=== PATIENT | female | born 1955 | race Caucasian/White ===

== ENCOUNTER → 2019-09-16 09:20 | Outpatient (CLI) | payer MEDICARE, SELFPAY ==
--- NOTE | 2019-09-16 | BRBX_PTH ---
PATIENT: HOA BLOOM LOC: [facility] U#:[id number] AGE/SX: 70/F ROOM: RE09/16/[address]: Dr. John Cody MD : 1955 BED: DIS: SPEC #: [id number] RECD: 09/16/19 13:33 STATUS: TAMMY REMary #: [id number] KEISHA: 09/16/19 00:[address]: John Cody DEPT: SURGICAL PATHOLOGY RECD BY: Asael Gómez ENTERED: 09/16/19 13:34 SP TYPE: BREAST BX OTHR DR: Dr. Herve Roe MD Tissues: Left breast, NOS Procedures: Surgery Specimen Level IV HEADER OPERATION: Left breast stereotactic needle core biopsy PRE-OP DIAGNOSIS: Microcalcifications TISSUE SUBMITTED: Left breast ISCHEMIC TIME: 2 minutes FIXATION TIME: 56.5 hours MICROSCOPIC DIAGNOSIS Left breast, stereotactic needle core biopsy: Fragments of benign breast tissue with focal fibrocystic changes and intraductal hyperplasia without atypia. Microcalcifications are not identified. Negative for malignancy. See comment. BOY:dwain 09/19/19 COMMENT Multiple levels are examined. Correlation with clinical, radiologic findings and appropriate follow up are necessary. MICROSCOPIC DESCRIPTION Slides are reviewed. GROSS DESCRIPTION Received is one container labeled with the patient's name and not further designated. The specimen consists of multiple elongated fragments of wyman-yellow fibroadipose tissue that in aggregate measure 7.5 x 3 x 0.3 cm. The entire specimen is submitted in three cassettes. / BOY:dwain 09/16/19 TC:5 CPT: 03051
--- NOTE | 2019-09-16 07:58 | PCM.HP.BLA ---
History and Physical Date of Admission: 09/16/19 HISTORY AND PHYSICAL - BREAST COMPLAINT ? Charito Cruz 1955 ? ? REFERRING PHYSICIAN: ??Tristen Schumacher MD ? CHIEF COMPLAINT:???Abnormal left breast imaging ? HPI: The patient is a 64 year old female with a complaint of?an abnormal mammogram. ?The patient had a?screening mammography on July 12, 2019 with follow-up diagnostic?mammogram with ultrasound on August 09, 2019?which demonstrated: ? IMPRESSION: SUSPICIOUS FINDING - BIOPSY SHOULD BE CONSIDERED The 5 mm irregular equal density focal asymmetry in the left breast is suspicious of malignancy. ?A stereotactic biopsy is recommended. ? Stereotactic biopsy is suggested since this is not well seen sonographically and the calcifications can serve as a marker for easeier idetification. LIMITED ULTRASOUND OF LEFT BREAST: 08/09/2019 RESULT: Comparison is made to exam dated: ?07/12/2019 mammogram - [facility]. ?Color flow and real-time ultrasound of the left breast 10-11 o'clock region were performed. ?Degroot scale images of the real-time examination were reviewed. There is 0.5 cm x 0.5 cm x 0.3 cm lobulated mass in the left breast at 11 o'clock middle depth 4 cm from the nipple. ?This lobulated mass is hypoechoic. IMPRESSION: SUSPICIOUS FINDING - BIOPSY SHOULD BE CONSIDERED The 0.5 cm x 0.5 cm x 0.3 cm lobulated mass in the left breast is suspicious of malignancy. ?A stereotactic biopsy is recommended. Sajan garcia/joleen:08/09/2019 15:45:49 Hose Seamer(s): RT Gene(R)(M), [facility]; Carolann Moraes, [facility] ?OVERALL STUDY BIRADS: 4 Suspicious finding - Biopsy should be considered Brass Pourer: Joleen Transcribe Date/Time: Aug 09 2019 ?2:52P Dictated by: SAJAN GAONA MD This examination was interpreted and the report reviewed and electronically signed by: SAJAN GAONA MD on Aug 09 2019 ?3:45PM ?EST Results-Findings ? * * *Final Report* * * DATE OF EXAM: Aug 09 2019 ?3:06PM ? WRW ??0621 ?- ?[facility] ?/ PROCEDURE REASON: Abnormal mammogram ? * * * * Physician Interpretation * * * * RESULT: #[id number] - [facility] #[id number] - [facility] US BREAST LTD LT UNILATERAL LEFT DIGITAL DIAGNOSTIC MAMMOGRAM WITH CAD: 08/09/2019 HISTORY: Abnormal Mammogram/call back left /priors available for comparison Abnormal Mammogram. RESULT: TECHNIQUE: The study was acquired using full field digital technology and interpreted from soft copy. Current study was also evaluated with a Computer Aided Detection (CAD). Comparison is made to exam dated: ?07/12/2019 mammogram - [facility]. ?There are scattered fibroglandular elements in left breast. There is a 5 mm irregular equal density focal asymmetry with a macrolobulated margin and fine calcifications in the left breast at 11 o'clock middle depth. No other significant masses or calcifications are seen in the breast. ? ? ? The patient?has a history of a previous right sided needle biopsy with marker clip placement and a previous open left breast biopsy performed in the ?with no marker placements. ?These both returned as benign. ?She does??perform a self breast exam routinely. ?She notes no skin changes. ?She denies nipple discharge. ?She notes no axillary masses. ?The patient has a sister diagnosed with breast cancer.??She notes no significant breast trauma or breast difficulties in the past. ? The patient has had?2?pregnancies. ??Her last mammogram was 2016. ?Her last menstrual period was in the 1989's. ?Her first menstrual period was at age 13. ? The patient is being seen by me today at the request of?Td?my opinion and advice regarding abnormal left breast imaging.?? ? PAST MEDICAL HISTORY PAST MEDICAL HISTORY Diagnosis Date ? Cholelithiasis 09/07/2014 ? Since 2011. ?Saw surgeon and was to have removed but surgery never set up and has not had any further symptoms. ? Elevated fasting blood sugar 07/26/2017 ? Essential hypertension 09/07/2014 ? Fatty liver 10/09/2014 ? Mixed hyperlipidemia 09/07/2014 ? Palpitations ? ? Vitamin D deficiency 07/02/2017 ? PAST SURGICAL HISTORY PAST SURGICAL HISTORY Procedure Laterality Date ? BREAST BIOPSY ? 07/1975 ? left breast - benign ? BREAST BIOPSY ? 11/2011 ? right breast - benign ? DELIVERY ONLY ? ? ? x2 ? PAST SURGICAL HISTORY OF ? 12/11/2014 ? parathyroidectomy, left upper ? ? ? CURRENT MEDICATIONS Current Outpatient Medications Medication Sig Dispense Refill ? Cholecalciferol, Vitamin D3, (VITAMIN D) 1,000 unit cap Take 1,000 Units by mouth once daily. ? ? ? atorvastatin (LIPITOR) 40 mg tablet Take 1 tablet by mouth once daily. 90 tablet 3 ? Hydrochlorothiazide 12.5 mg capsule Take 1 capsule by mouth once daily. 90 capsule 3 ? TURMERIC ORAL Take 1,000 mg by mouth once daily. ? ? ? OMEGA3/DHA/EPA/FISH OIL/VIT D3 (KY-2-WWU-EPA-FISH OIL-VIT D3 ORAL) Take ?by mouth. ? ? ? famotidine (PEPCID) 20 mg tablet Take 20 mg by mouth twice daily. ? ? ? CALCIUM-VITAMIN D3 ORAL Take 2,000 Units by mouth once daily. ? ? ? calcium carbonate (TUMS) 500 mg chew Take 1 tablet by mouth every hour as needed (mouth or hand numbness or tingling). ? 0 ? Glucosamine Sulfate 1,000 mg cap Take 2 per day ? ? ? pyridoxine (VITAMIN B-6) 100 mg tablet Take 1 tablet by mouth once daily. ? 0 ? [place]'s Wort 300 mg tab Take 2-3 tablets per day ? ? ? MULTI-VITAMIN ORAL Take 1 tablet by mouth once daily. ? ? ? deer-yfmo-bqt-ebc-fwi-vfvq-hor (TUMERSAID) [phone] mg tab Take by mouth. ? ? ? naproxen sodium (ALEVE) 220 mg tablet Take 220 mg by mouth three times daily with meals. ? ? ? red yeast rice 600 mg tab Take ?by mouth once daily. ? ? ? No current facility-administered medications for this visit.? ? ? ALLERGIES:?Patient has no known allergies. ? PERSONAL HISTORY:? SOCIAL HISTORY Social History ? Tobacco Use ? Smoking status: Never Smoker ? Smokeless tobacco: Never Used Substance Use Topics ? Alcohol use: No ? Drug use: No ?? ? FAMILY HISTORY:? FAMILY HISTORY FAMILY HISTORY Problem Relation Age of Onset ? Cancer Father ?unknown type ? Breast Cancer Sister ? ? ? REVIEW OF SYMPTOMS: ??The review of systems data was entered by the nurse and reviewed by me ? There are no exam notes on file for this visit. ? ? PHYSICAL EXAMINATION: ? General: ?The patient is 64 year old female, well nourished, well hydrated in no acute distress. ?The patient is oriented to time, place, and person. ? VITALS:?Blood pressure 142/86, pulse 95, temperature 36.5 ?C (97.7 ?F), height 162.6 cm (5' 4), weight 90.4 kg (199 lb 6.4 oz), SpO2 100 %.?Body mass index is 34.23 kg/m?.? ? HEENT: ?Normal cephalic, ataumatic, pupils are equally round, sclera are anicteric, mucous membranes are moist, oropharynx is clear. ?Neck has no masses, asymmetry or lymphadenopathy. ?Thyroid is unremarkable. ? Respiratory: ?Clear to auscultation and percussion. ?Normal respiratory excursion and pattern. ? Cardiac: ?Examination is regular rate and rhythm. ? Abdominal exam: ?Soft, nontender, ?with no palpable masses. ?No hepatosplenomegaly. ?No palpable hernias. ? Rectal exam: ?exam deferred Extremities: ?no clubbing, cyanosis or edema. ?No adenopathy. ? Breast: ?Visual inspection reveals no retractions, nipple inversion, or skin changes. ?Palpation of the right breast reveals no dominant or suspicious masses, but multiple benign-feeling nodules. ?Palpation of the left breast reveals no dominant or suspicious masses, but multiple benign-feeling nodules. ?Axillary exam demonstrates no suspicious masses in either the left or right axilla. ?There is no nipple discharge expressed from either the left or right breast. ? LABORATORY VALUES: As Noted ? RADIOLOGIC STUDIES: ?As Noted ? Assessment ? IMPRESSION:?Microcalcifications left breast ? PLAN:??I plan to perform a?stereotactic biopsy of the left breast. ?The planned surgical procedure was discussed extensively with the patient. ?The risks, benefits, anticipated outcomes and possible complications were mentioned. ?My staff has also explained the procedure in understandable terms and the patient was given the option to take printed material concerning the planned procedure. ?The patient had the opportunity to ask questions concerning the planned procedure. ?The patient freely consents to the planned procedure. ? Diagnoses:?(R92.8) Abnormal finding on breast imaging ?(primary encounter diagnosis) ? My findings have been communicated to Dr.??Tristen Schumacher MD?via shared medical record. ?This note will be forwarded to Dr. Tristen Schumacher MD. ? Return to Clinic: The patient is instructed to follow-up with me?after the testing has been completed. ? John Cody MD
--- NOTE | 2019-09-16 17:59 | PCM.OPRPT ---
Report of Operation Date of Procedure: 09/16/19 Pre-Operative Diagnosis: left breast microcalcifications/mass Post-Operative Diagnosis: successful state that he biopsy of left breast microcalcifications/mass Surgery/Procedure Performed:: left breast VAC assisted core needle biopsy/stereotactic biopsy with specimen radiograph and marker placement commercial green building architect: None Type of Anesthesia:: Local Specimen's removed: left breast tissue Description of Procedure: The patient was brought to the stereotactic suite and informed of the plan course of events. The left breast was positioned in the CC approach on the Tian stereotactic table. Mammographic image demonstrated the area of abnormality to be located in the center of the radiograph. Stereotactic images were then obtained which demonstrated good positioning of the abnormality for biopsy with good stroke norah parameters. The breast was cleaned with Betadine area did one percent lidocaine was used to anesthetize the skin and a small stab incision made. An 8-gauge mammotome needle was placed into the pre-fire position. Stereotactic images demonstrated good positioning around the planned biopsy site. Local anesthetic injected deeply in the breast. The needle was deployed. Post deployment images demonstrated good positioning of the planned biopsy site. Multiple vacuum-assisted samples were obtained and uaqxur-lrr-mpeqh fashion. Specimen radiograph demonstrated micro-calcifications in the sample. A gel marker clip was deployed. Post biopsy images demonstrated good position of the clip relative the biopsy cavity. The breast was removed from compression. Steri-Strips and a dressing applied. Post procedure mammogram images were obtained.
== END ==
PROVIDERS: Referring Provider Surgery; Visit Provider Surgery
DX: N62 Hypertrophy of breast (principal); R92.8 Other abnormal and inconclusive findings on diagnostic imaging of breast; I10 Essential (primary) hypertension; K76.0 Fatty (change of) liver, not elsewhere classified; E78.2 Mixed hyperlipidemia; E55.9 Vitamin D deficiency, unspecified; Z79.899 Other long term (current) drug therapy
CPT/HCPCS: 19081; 88305; J7050; A4648

== ENCOUNTER → 2021-12-13 | Outpatient (CLI) | payer MEDICARE, SELFPAY ==
--- NOTE | 2021-12-13 12:17 | EKG12_ITS ---
Test Reason : PRE OP Blood Pressure : / mmHG Vent. Rate : 086 BPM Atrial Rate : 086 BPM P-R Int : 142 ms QRS Dur : 060 ms QT Int : 330 ms P-R-T Axes : 065 -15 064 degrees QTc Int : 394 ms Normal sinus rhythm Low voltage QRS Borderline ECG Confirmed by DOREEN MCKEON, MORGAN ([id number]), supervising editor trailer YARY HUANG ([id number]) on 12/16/2021 11:35:54 AM Referred By: Alesha Pretty Confirmed By:MORGAN LOGAN MD
--- NOTE | 2021-12-13 12:32 | CT_ITS ---
STUDY: CT Lower Extremity W/O Contrast Injection 12/13/2021 4:33 PM REASON FOR EXAM: Female, 66 years old. KNEE PAIN Individualized dose optimization techniques were used for this CT. TECHNIQUE: KNEE PAIN DANIELA protocol Radiation: CTDIvol = [20.10] mGy, DLP = [1135.33] mGy-cm COMPARISON: No priors for comparison. FINDINGS: A michael was placed along the lateral aspect of the patient''s lower extremity. CT scans were obtained over the hip, knee, and ankle, separately. IMPRESSION: The images will be utilized by the surgical prosthesis money market dealer for measurement and planning purposes.. Electronically Signed: Talha Longo MD at 16:34 EDT , CT/Extremity Lower without Contra
[2021-12-13 13:32] LABS: Absolute Lymphocyte Count 1.89 X10^3/uL (0.83-4.51); Absolute Neutrophil Count 4.9 X10^3/uL (2.0-7.7); Basophil# 0.04 X10^3/uL; Basophil% 0.5 % (0-1); Eosinophil# 0.09 X10^3/uL; Eosinophils% 1.2 % (0-5); Hematocrit 43.5 % (37-47); Hemoglobin 14.6 g/dL (12.0-15.0); Lymphocyte # 1.89 X10^3/ul (0.83-4.51); Lymphocyte % 25.2 % (19-41); Mean Corp Hgb Conc 33.6 g/dL (32-36); Mean Corpuscular Hgb 29.9 pg (27.0-32.0); Mean Corpuscular Volume 89.1 fL (81-99); Mean Platelet Vol. 10.2 fl (6.2-12.0); Monocyte# 0.53 X10^3/uL; Monocyte% 7.1 % (0-10); NRBC Flagged by Analyzer 0 % (0-5); Neutrophil # 4.93 X10^3/uL (2.7-7.7); Neutrophil % 65.7 % (47-70); Platelet Count 402 K/mm3 (150-450); RBC Distribution Width CV 12.7 % (11.6-14.6); RBC Distribution Width SD 41.8 fl (35.1-43.9); Red Blood Count 4.88 M/mm3 (4.2-5.4); White Blood Count 7.5 K/mm3 (4.4-11.0)
[2021-12-13 14:05] LABS: Anion Gap 5 (5-15); BUN 16 mg/dL (7-18); BUN/Creat Ratio 17.7 RATIO (10-20); Calcium,Total 9.4 mg/dL (8.5-10.1); Chloride 105 mmol/L (98-107); Creatinine, Serum 0.91 mg/dL (0.55-1.02); EST Glomerular Filtration Rate 66 mL/min (>60); Est Glom Filt Rate - Afr Amer 80 mL/min (>60); Glucose 113 mg/dL (74-106); Sodium Level 140 mmol/L (136-145)
[2021-12-13 14:17] LABS: Hemoglobin A1c 5.7 % (3.8-5.6)
== END | disposition home or self-care (01) ==
PROVIDERS: PCP Family Medicine; Referring Provider Physician Assistant Surgical; Visit Provider Physician Assistant Surgical
DX: Z01.818 Encounter for other preprocedural examination (principal); M17.11 Unilateral primary osteoarthritis, right knee; Z01.810 Encounter for preprocedural cardiovascular examination; Z01.811 Encounter for preprocedural respiratory examination
CPT/HCPCS: 36415; 73700; 80048; 83036; 85025; 93005

== ENCOUNTER 2021-12-26 23:46 | Emergency (ER) | payer MEDICARE, SELFPAY ==
[2021-12-26 23:47] VITALS: BP 141/44; PULSE 73; RESP 16; TEMP 36.9; O2SAT 99; BMI 40.1
--- NOTE | 2021-12-27 00:25 | EDS_ITS ---
HPI History of Present Illness HPI Narrative: Patient had total knee arthroplasty on the right performed by Dr. Garcia yesterday. She had her dressings in place including Nirav bandage. She states this evening at 11:00, approximately an hour and a half ago she had gotten up to walk to the kitchen. When she sat back down, she pulled up her pant leg and noticed that there was bleeding coming from her leg wounds. The Nirav bandage was saturated. She denies any chest pain or lightheadedness. She does take aspirin 81 mg twice a day that was started by her orthopedic surgeon. She takes no other blood thinners. She denies other bleeding diathesis. Her daughter removed the Nirav bandage and noticed blood around the Tegaderm. She denies any trauma to her leg, stating that she did not bump it on anything. Chief Complaint: Wound Check [facility] Medical History Hyperlipemia Hypertension Home Medications Centrum Silver 1 tab PO/SL DAILY 12/26/21 [History Last Taken Unknown] aspirin 81 mg PO BID 12/26/21 [History Last Taken Unknown] atorvastatin 40 mg PO QHS 12/26/21 [History Last Taken Unknown] famotidine [Pepcid] 20 mg PO DAILY 12/26/21 [History Last Taken Unknown] hydrochlorothiazide 25 mg PO DAILY 12/26/21 [History Last Taken Unknown] lisinopril 20 mg PO DAILY 12/26/21 [History Last Taken Unknown] oxycodone 5 mg PO Q4H PRN PRN 12/26/21 [History Last Taken Unknown] Allergy/AdvReac Type Severity Reaction Status Date / Time No Known Allergies Allergy Verified 12/26/21 23:52 Surgical History Knee joint replacement status Social History Smoking Status: Never smoker ROS ROS ED ROS Narrative Constitutional: No fever, no chills. HEENT: No sore throat. No neck pain. No loss of vision. No rhinorrhea. Cardiovascular: No chest pain. No palpitations. No pedal edema. Respiratory: No cough, no shortness of breath. Abdominal: No abdominal pain. No nausea. No vomiting. Genitourinary: No dysuria. No hematuria. Musculoskeletal: No myalgias. No arthralgias. Bleeding of surgical incisions right lower extremity. Neurologic: No headaches. No dizziness. No lightheadedness. Skin: No rash. No change in color. Psychiatric: No depression. No anxiety. EXAM Physical Exam Narrative Exam Narrative: Afebrile. Vital signs noted. HEENT: Normocephalic. Atraumatic. PERRL, EOMI. Neck soft and supple. No point tenderness or step off. Cardiovascular: Regular rate and rhythm. No murmurs, rubs, or gallops appreciated. Respiratory: No tachypnea. Lungs clear to auscultation bilaterally. Gastrointestinal: Abdomen soft, nontender, with normoactive bowel sounds. No rebound or guarding. Neurological: Awake. Alert. Nonfocal, nonlateralizing. Skin: No rash. Normal color. No pallor. Right lower extremity incisions show no active bleeding. They appear intact with johnson. Musculoskeletal: No pedal edema. Range of motion of right knee limited secondary to pain/recent surgery. Palpable dorsalis pedis pulse. Const Vital Signs: 12/26/21 23:47 12/27/21 01:13 Temperature 98.4 F Temperature Source Temporal Pulse Rate 73 74 Respiratory Rate 16 16 Blood Pressure 141/44 H 100/54 L Blood Pressure Mean 76 69 Pulse Ox 99 98 Oxygen Delivery Method Room Air Room Air MDM MDM MDM Narrative Medical decision making narrative: As there are no signs of active bleeding, I do feel that this was most likely postoperative bleeding from a hematoma. She states she was wearing CHACHA hose/compression stockings but had removed them t roge. I discussed the patient with Dr. Gaspar. He agrees that she can have her dressings changed and follow-up with [facility] as scheduled. She can start physical therapy tomorrow. I feel she be discharged safely home with follow-up. Return instructions to the emergency department were reviewed. Disposition is discharged home in stable condition. Discharge Plan Triage Chief Complaint: Wound Check ED Provider: Charles Ugarte Dx/Rx/DC Orders Clinical Impression: Postoperative bleeding from incision, Encounter for postoperative wound check Instructions: ED Post Op Wound Check, Bleeding, ED Wound Check (No Infection) Prescriptions: No Action atorvastatin 40 mg tablet 40 mg PO QHS RF: 0 lisinopril 20 mg tablet 20 mg PO DAILY RF: 0 aspirin 81 mg tablet,delayed release (DR/EC) 81 mg PO BID RF: 0 hydrochlorothiazide 12.5 mg capsule 25 mg PO DAILY RF: 0 famotidine [Pepcid] 20 mg Tablet 20 mg PO DAILY RF: 0 oxycodone 5 mg tablet 5 mg PO Q4H PRN PRN (Reason: Pain) RF: 0 Centrum Silver 1 tab PO/SL DAILY RF: 0 Primary Care Provider: Tristen Schumacher Referrals: Tristen Schumacher MD [Primary Care Provider] - See Garcia DO [STAFF PHYSICIAN] - As Needed Disposition Disposition: Home, Self Care Discharge Date/Time: 12/27/21 01:15
[2021-12-27 01:13] VITALS: BP 100/54; PULSE 74; RESP 16; O2SAT 98
== END 2021-12-27 01:15 | disposition home or self-care (01) ==
PROVIDERS: Emergency Provider Emergency Medicine; PCP Family Medicine; Visit Provider Emergency Medicine
DX: L76.22 Postprocedural hemorrhage of skin and subcutaneous tissue following other procedure (principal); Y83.1 Surgical operation with implant of artificial internal device as the cause of abnormal reaction of the patient, or of later complication, without mention of misadventure at the time of the procedure; M17.11 Unilateral primary osteoarthritis, right knee; I10 Essential (primary) hypertension; E78.5 Hyperlipidemia, unspecified; Z79.82 Long term (current) use of aspirin; Z79.899 Other long term (current) drug therapy; Z96.651 Presence of right artificial knee joint
CPT/HCPCS: 88305; 88311; 99282

== ENCOUNTER → 2021-12-26 | Outpatient (CLI) | payer MEDICARE, SELFPAY ==
--- NOTE | 2021-12-25 08:40 | KNEE_PTH ---
PATIENT: HOA BLOOM LOC: [facility] U#:[id number] AGE/SX: 66/F ROOM: RE12/26/[address]: Dr. See Garcia DO : 1955 BED: DIS: 12/26/2021 SPEC #: [id number] RECD: 12/25/21 13:38 STATUS: TAMMY REMary #: [id number] KEISHA: 12/25/21 08:[address]: See Garcia DEPT: SURGICAL PATHOLOGY RECD BY: Tawny aBron ENTERED: 12/27/21 13:39 SP TYPE: TOTAL KNEE OTHR DR: Dr. Tristen Schumacher MD [facility] Tissues: Knee, NOS Procedures: Decalcification bone/plaque Surgery Specimen Level IV HEADER OPERATION: Robotic assisted right total knee arthroplasty PRE-OP DIAGNOSIS: Osteoarthritis right knee TISSUE SUBMITTED: Bone and soft tissue right knee MICROSCOPIC DIAGNOSIS Bone and soft tissue, right knee, total knee replacement/resection: Pieces of bone with degenerative osteoarthritic changes. Fibroadipose tissue, fibroconnective tissue and reactive synovial tissue. Focal changes consistent with pseudogout. SJ:dwain 01/01/2022 MICROSCOPIC DESCRIPTION Slides are reviewed. GROSS DESCRIPTION Received is one container designated bone and soft tissue right knee. The specimen consists of multiple fragments of wyman-yellow bone measuring in aggregate 17 x 16 x 2 cm. Also in the specimen container are multiple fragments of yellow-white soft tissue measuring in aggregate 10 x 7 x 2 cm. A number of bony fragments contain articular surfaces consistent with tibial plateau and femoral condyle and displaying prominent osteophyte formation, eburnation, and bone erosion. Breakfast Attendant sections are submitted in two cassettes as follows: 1 - soft tissue, 2 - bone after decalcification. / AM:dwain 12/27/2021 TC:3 CPT: 62276, 03869
== END | disposition home or self-care (01) ==
PROVIDERS: PCP Family Medicine; Visit Provider Orthopaedic Surgery
DX: M17.11 Unilateral primary osteoarthritis, right knee (principal)
CPT/HCPCS: 88305; 88311